=== PATIENT | female | born 1930 | race Caucasian/White ===

== ENCOUNTER → 2016-07-08 | Outpatient (CLI) | payer BC ==
[~2016-07-08] MED LIST: LANS30CA12 PO; SERT-234 PO
[2016-07-08 09:43] LABS: HEMATOCRIT 41.5 % (37-47); MEAN CELL VOLUME 94.1 fL (80-100); MEAN PLATELET VOLUME 10.4 fL (7.4-10.4); PLATELET COUNT 280 K/uL (130-400); RED BLOOD COUNT 4.41 M/uL (4.2-5.4); WHITE BLOOD COUNT 6.03 K/uL (4.8-10.8)
[2016-07-08 09:59] LABS: ALT/SGPT 22 U/L (12-78); BLOOD UREA NITROGEN 23 mg/dl (7-18); BUN/CREATININE RATIO 35.2 (10-20); CALCIUM 8.7 mg/dl (8.5-10.1); CARBON DIOXIDE 26 mmol/L (21-32); CHLORIDE 109 mmol/L (98-107); CHOLESTEROL 222 mg/dl (0-200); CREATININE 0.64 mg/dl (0.60-1.20); GLUCOSE 99 mg/dl (70-99); POTASSIUM 4.3 mmol/L (3.5-5.1); SODIUM 142 mmol/L (136-145); TRIGLYCERIDES 99 mg/dl (0-150); VERY LOW DENSITY LIPOPROT CALC 20 mg/dl
[2016-07-08 10:02] LABS: ALKALINE PHOSPHATASE 59 U/L (45-117); AST/SGOT 14 U/L (15-37); CHOLESTEROL/HDL RATIO 2.9; HDL CHOLESTEROL 77 mg/dl; LDL CHOLESTEROL CALCULATED 125 mg/dl
[2016-07-08 10:03] LABS: BASO % 0.7 %; BASO ABS # 0.04 K/uL (0-0.2); COMPLETE YES; EOS % 5.6 %; IG% 0.2 %; LYMPH % 52.4 %; LYMPH ABS # 3.16 K/uL (1.2-3.4); MONO % 9.5 %; NEUT % 31.6 %
== END | disposition home or self-care (01) ==
LOC: C.LAB 07:50
PROVIDERS: ATTEND Internal Medicine
DX: H81.09 Meniere's disease, unspecified ear (principal)

== ENCOUNTER → 2016-08-18 | Outpatient (CLI) | payer BC ==
--- NOTE | 2016-08-18 14:35 | DIAGNOSTIC IMAGING REPORT ---
RIGHT RIBS UNILATERAL WITH PA CHEST CLINICAL HISTORY: Right lower anterior rib pain. COMPARISON STUDY: Chest radiograph November 20, 2015. FINDINGS: Elevation of the right hemidiaphragm is unchanged. Right breast surgical clips are noted. There is no pneumothorax or pleural effusion. No consolidation is identified. Cardiomediastinal silhouette is stable. There are multiple old right-sided rib fractures. No acute right-sided rib fractures are identified. IMPRESSION: 1. No pneumothorax. No acute right-sided rib fractures identified. 2. Multiple old right-sided rib fractures. Electronically signed by: Sergei Dewey M.D. 08/18/2016 2:34 PM Dictated Date/Time: 08/18/2016 2:31 PM
== END | disposition home or self-care (01) ==
LOC: C.RADBC 14:15
PROVIDERS: ATTEND Physician Assistant
DX: R07.81 Pleurodynia (principal)

== ENCOUNTER → 2017-02-02 | Outpatient (CLI) | payer BC ==
--- NOTE | 2017-02-02 11:52 | DIAGNOSTIC IMAGING REPORT ---
FLUORO UP TO 1 HOUR CLINICAL HISTORY: 86 years-old Female presenting with COUGH, DYSPNEA ON EXERTION. TECHNIQUE: Video fluoroscopic evaluation of of the hemidiaphragms was performed in the AP projection (sniff test). COMPARISON: Chest x-ray from 08/18/2016. FINDINGS: At baseline, the right hemidiaphragm is abnormally elevated at the level of the right eighth rib. The left hemidiaphragm at baseline is at the level of the left 10th rib. Upon inspiration (sniffing maneuver), normal excursion of the left hemidiaphragm observed, which descends to the level of the left 11th rib. However, no significant movement of the right hemidiaphragm is observed. The right hemidiaphragm remains at the level of the right eighth rib. Fluoroscopy dosage (mGy): Not available. Fluoroscopy time: 0.4 minutes. Number of fluoroscopic spot images: 0. IMPRESSION: 1. 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 Normal left hemidiaphragm. Electronically signed by: Sabas Dyson M.D. 02/02/2017 11:51 AM Dictated Date/Time: 02/02/2017 11:47 AM
== END | disposition home or self-care (01) ==
LOC: C.RAD 11:03
PROVIDERS: ATTEND Internal Medicine Pulmonary Disease
DX: R05 Cough (principal)

== ENCOUNTER → 2017-02-11 | Outpatient (CLI) | payer BC ==
[~2017-02-11] MED LIST changes: +OPTIRAY 320 IV PRN
[2017-02-11 11:33] LABS: BLOOD UREA NITROGEN 19 mg/dl (7-18); BUN/CREATININE RATIO 26.4 (10-20); CREATININE 0.71 mg/dl (0.60-1.20)
--- NOTE | 2017-02-11 11:59 | DIAGNOSTIC IMAGING REPORT ---
CT OF THE CHEST WITH IV CONTRAST CLINICAL HISTORY: Cough. Dyspnea on exertion. COMPARISON STUDY: Chest CT September 26, 2005 and chest radiograph November 20, 2015. TECHNIQUE: Following IV administration of 94 mL of Optiray-320, helical axial images of the chest were obtained. Sagittal and coronal reconstructions were viewed as well as maximal intensity projections on an independent 3-D workstation. A dose lowering technique was utilized adhering to the principles of ALARA. CT DOSE: 216.08 mGycm FINDINGS: No enlarged axillary, mediastinal or hilar lymph nodes are present. There are postoperative findings within the right breast. The heart is moderately enlarged. There is no pericardial effusion. Moderate coronary artery calcification is noted. A small hiatal hernia is present. Note is made of moderate elevation of the right hemidiaphragm. Associated linear opacities reflect atelectasis. There is no consolidation to suggest pneumonia. Central airways are patent. There are no suspicious pulmonary nodules. No pneumothorax or pleural effusion is present. There are no suspicious osseous lesions. Mild biliary ductal dilatation is likely related to prior cholecystectomy. This is unchanged since CT of September 26, 2005. There are several hepatic cysts. Note is made of a 1.7 cm hypervascular segment 4A/8 focus within the liver shown on image 39 of 54. IMPRESSION: 1. No acute intrathoracic findings. 2. Moderate elevation of the right hemidiaphragm. 3. Moderate cardiomegaly. 4. 1.7 cm hypervascular segment 4A/8 focus within the liver. This is nonspecific but low suspicion. Electronically signed by: Sergei Dewey M.D. 02/11/2017 11:58 AM Dictated Date/Time: 02/11/2017 11:48 AM
== END | disposition home or self-care (01) ==
LOC: C.CTS 10:36
PROVIDERS: ATTEND Internal Medicine Pulmonary Disease
DX: R06.09 Other forms of dyspnea (principal); R05 Cough

== ENCOUNTER → 2017-03-03 | Outpatient (CLI) | payer BC ==
[~2017-03-03] MED LIST changes: -OPTIRAY 320 IV PRN
--- NOTE | 2017-03-03 13:01 | DIAGNOSTIC IMAGING REPORT ---
MRI OF THE LUMBAR SPINE WITHOUT CONTRAST CLINICAL HISTORY: Left lumbar radiculopathy. COMPARISON STUDY: No previous studies for comparison. TECHNIQUE: Utilizing a 1.5 Denia magnet and dedicated coil, multiplanar, multiecho imaging of the lumbar spine was performed without IV contrast. FINDINGS: For purposes of numbering on this exam, the L5-S1 disc space is assigned to axial image 23 of 25. There is 3 mm of anterolisthesis of L4 and L5. There is no suspicious marrow replacement. Conus terminates at the L1-L2 level. There are few sacral Tarlov cyst. There are bilateral parapelvic cysts within the kidneys and extensive colonic diverticulosis, partially imaged on this exam. No intracanalicular mass or fluid collection is present. L1-2: There is mild disc bulge and facet arthrosis. The central canal and neural foramen are patent. L2-3: There is mild disc bulge and facet arthrosis. The central canal and neural foramen are patent. L3-4: There is mild disc bulge with facet arthrosis and ligamentous hypertrophy. The central canal and neural foramen are patent. L4-5: There is grade I anterolisthesis with slight uncovering of the disc. There is facet arthrosis. Central canal and neural foramen are patent. L5-S1: The central canal and neural foramen are patent. IMPRESSION: 1. Mild multilevel degenerative disc disease and moderate multilevel facet arthrosis. Multilevel disc bulges. No significant central canal or neural foraminal stenosis. 2. No disc herniation identified. 3. No marrow replacement. No compression fracture. Electronically signed by: Sergei Dewey M.D. 03/03/2017 12:59 PM Dictated Date/Time: 03/03/2017 12:54 PM
== END | disposition home or self-care (01) ==
LOC: C.MRIBC 10:33
PROVIDERS: ATTEND Internal Medicine
DX: M54.16 Radiculopathy, lumbar region (principal)

== ENCOUNTER → 2017-07-03 | Outpatient (CLI) | payer BC ==
[2017-07-03 16:47] LABS: BASO % 0.5 %; BASO ABS # 0.03 K/uL (0-0.2); EOS % 3.5 %; EOS ABS # 0.23 K/uL (0-0.5); HEMATOCRIT 41.8 % (37-47); HEMOGLOBIN 14.2 g/dL (12.0-16.0); LYMPH % 45.3 %; LYMPH ABS # 2.97 K/uL (1.2-3.4); MEAN CELL VOLUME 95.7 fL (80-100); MEAN CORPUSCULAR HEMOGLOBIN 32.5 pg (25-34); MEAN PLATELET VOLUME 10.5 fL (7.4-10.4); MONO % 7.6 %; NEUT % 43.1 %; NEUT ABS # 2.83 K/uL (1.4-6.5); PLATELET COUNT 293 K/uL (130-400); RED CELL DISTRIBUTION WIDTH CV 14.1 % (11.5-14.5); RED CELL DISTRIBUTION WIDTH SD 49.5 fL (36.4-46.3); WHITE BLOOD COUNT 6.56 K/uL (4.8-10.8)
[2017-07-03 17:37] LABS: ALBUMIN 3.2 gm/dl (3.4-5.0); ALT/SGPT 19 U/L (12-78); BLOOD UREA NITROGEN 19 mg/dl (7-18); CALCIUM 8.4 mg/dl (8.5-10.1); CARBON DIOXIDE 23 mmol/L (21-32); CHOLESTEROL 208 mg/dl (0-200); CREATININE 0.72 mg/dl (0.60-1.20); GLUCOSE 108 mg/dl (70-99); SODIUM 139 mmol/L (136-145)
[2017-07-03 17:47] LABS: ALKALINE PHOSPHATASE 57 U/L (45-117); AST/SGOT 14 U/L (15-37); LDL CHOLESTEROL CALCULATED 112 mg/dl; TOTAL PROTEIN 6.8 gm/dl (6.4-8.2)
== END | disposition home or self-care (01) ==
LOC: C.LABBC 13:53
PROVIDERS: ATTEND Internal Medicine
DX: M81.0 Age-related osteoporosis without current pathological fracture (principal); K21.9 Gastro-esophageal reflux disease without esophagitis; E78.5 Hyperlipidemia, unspecified; F43.22 Adjustment disorder with anxiety; R06.09 Other forms of dyspnea

== ENCOUNTER 2017-11-15 20:56 | Emergency (ER) | payer BC ==
[~2017-11-15] VITALS: Ht 154.9 cm; Wt 77.5 kg
[2017-11-15 21:01] VITALS: TEMP 36.5
[2017-11-15 21:44] VITALS: O2SAT 94; Ht 154.9 cm; Wt 77.5 kg
[2017-11-15] MEDS ORDERED: ONDANSETRON INJ 2 MG/ML 2 ML VIAL IV STA (21:46)
[2017-11-15] MEDS ORDERED: MECLIZINE HCL 25 MG TAB PO STA (21:46)
[2017-11-15] MEDS ORDERED: SODIUM CHLORIDE 0.9% 1000ML 1,000 ML IV STA (21:46)
[2017-11-15 21:55] LABS: BASO % 0.5 %; BASO ABS # 0.03 K/uL (0-0.2); EOS % 3.2 %; EOS ABS # 0.19 K/uL (0-0.5); HEMATOCRIT 42.7 % (37-47); HEMOGLOBIN 14.4 g/dL (12.0-16.0); IG# 0.01 K/uL (0.00-0.02); LYMPH % 42.4 %; LYMPH ABS # 2.52 K/uL (1.2-3.4); MEAN CELL VOLUME 94.9 fL (80-100); MEAN CORPUSCULAR HGB CONC 33.7 g/dl (32-36); MONO % 10.6 %; MONO ABS # 0.63 K/uL (0.11-0.59); NEUT % 43.1 %; NEUT ABS # 2.56 K/uL (1.4-6.5); PLATELET COUNT 256 K/uL (130-400); RED CELL DISTRIBUTION WIDTH CV 14.7 % (11.5-14.5); WHITE BLOOD COUNT 5.94 K/uL (4.8-10.8)
--- NOTE | 2017-11-15 22:09 | DIAGNOSTIC IMAGING REPORT ---
CT OF THE HEAD WITHOUT CONTRAST CLINICAL HISTORY: Weakness. Dizziness. COMPARISON STUDY: Head CT January 16, 2011. CT DOSE: 537.48 mGy.cm TECHNIQUE: Helical axial images of the head were obtained without IV contrast. Automated exposure control was utilized for the study. A dose lowering technique was utilized adhering to the principles of ALARA. FINDINGS: A 1.5 cm hyperdense extra-axial lesion overlying the left frontal lobe has minimally increased in size since CT of January 07, 2011. No additional intracranial masses are identified. Ventricular system is normal. The basilar cisterns are patent. Mild atrophy is noted. No findings are noted to suggest acute dural sinus thrombosis or acute territorial infarct. There are no significant calvarial abnormalities. Visualized portions of the sinuses and mastoid air cells are clear. IMPRESSION: 1. No acute intracranial findings. 2. Slight increase in size of a 1.5 cm hyperdense extra-axial mass overlying the left frontal lobe since head CT of January 16, 2011. This is consistent with a meningioma. Electronically signed by: Sergei Dewey M.D. 11/15/2017 10:08 PM Dictated Date/Time: 11/15/2017 10:04 PM
[2017-11-15 22:22] LABS: ALBUMIN 3.4 gm/dl (3.4-5.0); ALKALINE PHOSPHATASE 61 U/L (45-117); ALT/SGPT 21 U/L (12-78); AST/SGOT 17 U/L (15-37); BLOOD UREA NITROGEN 19 mg/dl (7-18); CALCIUM 8.4 mg/dl (8.5-10.1); CARBON DIOXIDE 24 mmol/L (21-32); CREATININE 0.89 mg/dl (0.60-1.20); GLUCOSE 85 mg/dl (70-99); POTASSIUM 3.8 mmol/L (3.5-5.1); SODIUM 139 mmol/L (136-145); TOTAL PROTEIN 7.1 gm/dl (6.4-8.2)
[2017-11-15 22:43] VITALS: PULSE 80; O2SAT 95
[2017-11-15 23:00] VITALS: BP 182/89
[2017-11-15] MEDS ORDERED: MECL-91 PO (23:10)
--- NOTE | 2017-11-15 23:19 | EMERGENCY ROOM VISIT NOTE ---
History Report prepared by Becky: Valeri Gardner Under the Supervision of: Dr. Cooper Tamayo D.O. First contact with patient: 21:14 Chief Complaint: DIZZY Stated Complaint: DIZZY History of Present Illness The patient is an 87 year old female who presents to the Emergency Room with complaints of intermittent dizziness for the past 2 weeks. The patient states that she has had these dizzy spells in the past, but they have been getting worse. She states that especially over the past 2 days the episodes have gotten closer together and have been lasting longer. She notes that they are worse when she stands up and moves her head. She notes that this episode started 2.5 hours ago. She notes that she recently started a new medication for depression. The patient denies weakness, numbness, headache, change in vision, ringing in her ears, cough, runny nose, chest pain, nausea, vomiting, abdominal pain, and diarrhea. Source of History: patient Onset: 2 weeks ago Position: head Quality: other (dizziness) Timing: intermittent Modifying Factors (Worsening): movement (of head), other (standing up) Associated Symptoms: No headache, No cough, No chest pain, No nausea, No vomiting, No abdominal pain, No diarrhea, No weakness, No numbness Note: The patient denies change in vision, ringing in her ears, and a runny nose. Review of Systems See HPI for pertinent positives & negatives. A total of 10 systems reviewed and were otherwise negative. Past Medical & Surgical Medical Problems: (1) GERD (gastroesophageal reflux disease) Family History No pertinent family history Social History Alcohol Use: none Drug Use: none Marital Status: Housing Status: lives with family Occupation Status: retired Current/Historical Medications Scheduled Lansoprazole (Prevacid), 30 MG PO DAILY Meclizine HCl (Meclizine 25), 25 MG PO TID Sertraline (Zoloft), 100 MG PO DAILY Allergies Coded Allergies: No Known Allergies (Verified , 10/29/12) Physical Exam Vital Signs Date Time Temp Pulse Resp B/P (MAP) Pulse Ox O2 Delivery O2 Flow Rate FiO2 11/15/17 23:00 182/89 11/15/17 22:43 80 19 188/92 95 Room Air 11/15/17 22:30 80 16 172/80 94 Room Air 11/15/17 22:30 80 172/80 84 187/90 85 184/87 11/15/17 22:29 83 11/15/17 21:44 94 Room Air 11/15/17 21:44 94 Room Air 11/15/17 21:01 36.5 78 18 137/80 93 Room Air Physical Exam GENERAL: Sitting up in bed, alert, well appearing for stated age, well nourished , no distress, non-toxic EYE EXAM: normal conjunctiva. EARS: TMs are clear bilaterally. OROPHARYNX: no exudate, no erythema, lips, buccal mucosa, and tongue normal and mucous membranes are moist NECK: supple, no nuchal rigidity, no adenopathy, non-tender LUNGS: Clear to auscultation. Normal chest wall mechanics HEART: no murmurs, S1 normal and S2 normal ABDOMEN: abdomen soft, non-tender, normo-active bowel sounds, no masses, no rebound or guarding. BACK: Back is symmetrical on inspection and there is no deformity, no midline tenderness, no CVA tenderness. SKIN: no rashes and no bruising UPPER EXTREMITIES: upper extremities are grossly normal. LOWER EXTREMITIES: No pitting edema. NEURO EXAM: Normal sensorium, cranial nerves II-XII intact, normal speech, no weakness of arms, no weakness of legs. No drift. Finger to nose intact. Gross sensation intact. Rapid alternating movements of upper extremities intact. Medical Decision & Procedures ER Provider Diagnostic Interpretation: Radiology results as stated below per my review and the radiologist's interpretation: CT OF THE HEAD WITHOUT CONTRAST CLINICAL HISTORY: Weakness. Dizziness. COMPARISON STUDY: Head CT January 16, 2011. CT DOSE: 537.48 mGy.cm TECHNIQUE: Helical axial images of the head were obtained without IV contrast. Automated exposure control was utilized for the study. A dose lowering technique was utilized adhering to the principles of ALARA. FINDINGS: A 1.5 cm hyperdense extra-axial lesion overlying the left frontal lobe has minimally increased in size since CT of January 07, 2011. No additional intracranial masses are identified. Ventricular system is normal. The basilar cisterns are patent. Mild atrophy is noted. No findings are noted to suggest acute dural sinus thrombosis or acute territorial infarct. There are no significant calvarial abnormalities. Visualized portions of the sinuses and mastoid air cells are clear. IMPRESSION: 1. No acute intracranial findings. 2. Slight increase in size of a 1.5 cm hyperdense extra-axial mass overlying the left frontal lobe since head CT of January 16, 2011. This is consistent with a meningioma. Electronically signed by: Sergei Dewey M.D. 11/15/2017 10:08 PM Dictated Date/Time: 11/15/2017 10:04 PM Laboratory Results 11/15/17 21:44 Red Blood Count 4.50, Mean Corpuscular Volume 94.9, Mean Corpuscular Hemoglobin 32.0, Mean Corpuscular Hemoglobin Concent 33.7, Mean Platelet Volume 10.0, Neutrophils (%) (Auto) 43.1, Lymphocytes (%) (Auto) 42.4, Monocytes (%) (Auto) 10.6, Eosinophils (%) (Auto) 3.2, Basophils (%) (Auto) 0.5, Neutrophils # (Auto ) 2.56, Lymphocytes # (Auto) 2.52, Monocytes # (Auto) 0.63, Eosinophils # (Auto ) 0.19, Basophils # (Auto) 0.03 11/15/17 21:44 Test 11/15/17 21:44 11/15/17 21:55 White Blood Count 5.94 K/uL (4.8-10.8) Red Blood Count 4.50 M/uL (4.2-5.4) Hemoglobin 14.4 g/dL (12.0-16.0) Hematocrit 42.7 % (37-47) Mean Corpuscular Volume 94.9 fL (80-100) Mean Corpuscular Hemoglobin 32.0 pg (25-34) Mean Corpuscular Hemoglobin Concent 33.7 g/dl (32-36) Platelet Count 256 K/uL (130-400) Mean Platelet Volume 10.0 fL (7.4-10.4) Neutrophils (%) (Auto) 43.1 % Lymphocytes (%) (Auto) 42.4 % Monocytes (%) (Auto) 10.6 % Eosinophils (%) (Auto) 3.2 % Basophils (%) (Auto) 0.5 % Neutrophils # (Auto) 2.56 K/uL (1.4-6.5) Lymphocytes # (Auto) 2.52 K/uL (1.2-3.4) Monocytes # (Auto) 0.63 K/uL (0.11-0.59) Eosinophils # (Auto) 0.19 K/uL (0-0.5) Basophils # (Auto) 0.03 K/uL (0-0.2) RDW Standard Deviation 51.0 fL (36.4-46.3) RDW Coefficient of Variation 14.7 % (11.5-14.5) Immature Granulocyte % (Auto) 0.2 % Immature Granulocyte # (Auto) 0.01 K/uL (0.00-0.02) Anion Gap 11.0 mmol/L (3-11) Est Creatinine Clear Calc Drug Dose 43.5 ml/min Estimated GFR () 68.5 Estimated GFR (Non- 59.1 BUN/Creatinine Ratio 21.0 (10-20) Calcium Level 8.4 mg/dl (8.5-10.1) Total Bilirubin 0.3 mg/dl (0.2-1) Direct Bilirubin 0.1 mg/dl (0-0.2) Aspartate Amino Transf (AST/SGOT) 17 U/L (15-37) Alanine Aminotransferase (ALT/SGPT) 21 U/L (12-78) Alkaline Phosphatase 61 U/L (45-117) Troponin I < 0.015 ng/ml (0-0.045) Total Protein 7.1 gm/dl (6.4-8.2) Albumin 3.4 gm/dl (3.4-5.0) Thyroid Stimulating Hormone (TSH) 1.600 uIu/ml (0.300-4.500) Bedside Glucose 81 mg/dl (70-90) Laboratory results per my review. Medications Administered Medications (Trade) Dose Ordered Sig/Terry Route Start Time Stop Time Status Last Admin Dose Admin Ondansetron HCl (Zofran Inj) 4 mg NOW STAT IV 11/15/17 21:46 11/15/17 21:47 DC 11/15/17 22:05 4 MG Sodium Chloride 1,000 ml @ 999 mls/hr Q1H1M STAT IV 11/15/17 21:46 11/15/17 22:46 DC 11/15/17 22:06 999 MLS/HR Meclizine HCl (Antivert Tab) 25 mg NOW STAT PO 11/15/17 21:46 11/15/17 21:47 DC 11/15/17 22:05 25 MG ECG Per My Interpretation Indication: other (dizziness) Rate (beats per minute): 75 Rhythm: sinus rhythm Findings: PAC, Q waves (Inferior, Septal) Comparison ECG Date: 01/24/2002 Change: no significant change ED Course ED COURSE: Vital signs were reviewed and showed situational hypertension. The patients medical record was reviewed The above diagnostic studies were performed and reviewed. ED treatments and interventions as stated above. 2116: The patient was evaluated in room C11B. A complete history and physical examination was performed. 2145: Ordered Meclizine HCl 25 mg PO, NSS 1000 ml @ 999 mls/hr IV, Zofran Inj 4 mg IV. 6: I reevaluated the patient and she is going to try getting up to use the restroom. 2243: Nursing staff called and the patient feels 100% better. She had no difficulty walking. 2311: Upon reevaluation, the patient is resting comfortably. I discussed my findings with the patient and she understands and agrees with the treatment plan. Based on the patients age, coexisting illnesses, exam and lab findings the decision to treat as an outpatient was made. The patient remained stable while under my care. The patient appeared well at the time of discharge. Medical Decision Differential diagnosis includes etiologies such as benign positional vertigo, dehydration, hypovolemia, anemia, tumor, infection, hypoglycemia, electrolyte abnormalities, cardiac sources, intracerebral event, toxicologic, neurologic, as well as others were entertained. Patient is an 87-year-old female who presents the ER for feeling dizzy for the past 2 weeks. She notes specifically over the past 3 days it has been worse. It is mostly with movement of her head and going to standing. Recently started antidepressant. She denies any chest pain or shortness of breath. No weakness or numbness of her arms or legs. CBC along with BMP, LFTs, bilirubin and TSH was unremarkable. Troponin was negative. EKG was unchanged from previous with some sinus arrhythmia. CT head was negative with the exception of a meningioma which was present previously. Patient is neurologically intact. Symptoms resolved with Zofran, fluids and Antivert. Symptoms do not appear to be central. Patient was updated bedside discharge follow-up with PCP as an outpatient. She was able to ambulate without difficulty. Discussed with Pt concerning signs and symptoms to watch out for. Pt was instructed to follow up with their PCP and discussed with the patient their option to return to the ED at anytime for persistent or worsening symptoms. The appropriate anticipatory guidance and out-patient management, including indications for return to the emergency department, were explained at length to the patient and understood. Medication Reconcilliation Current Medication List: was personally reviewed by me Blood Pressure Screening Patient's blood pressure: Elevated blood pressure Blood pressure disposition: Elevated BP felt to be situational Impression Primary Impression: Dizziness Scribe Attestation The scribe's documentation has been prepared under my direction and personally reviewed by me in its entirety. I confirm that the note above accurately reflects all work, treatment, procedures, and medical decision making performed by me. Departure Information Dispostion Home / Self-Care Prescriptions Meclizine HCl (Meclizine 25) 25 Mg Tab 25 MG PO TID for 10 Days Prov: Cooper Tamayo, 11/15/17 Referrals Sabas Osborn M.D. (PCP) Forms HOME CARE DOCUMENTATION FORM, IMPORTANT VISIT INFORMATION Patient Instructions My [facility] Additional Instructions Please follow up with your primary care doctor with in the next 24 hours. Any worsening of your symptoms, please return to the ED immediately. This includes any fevers greater than 100.4, worsening pain, chest pain, shortness breath, persistent nausea, vomiting, unable to eat or drink, or any other concerning signs or symptoms from your standpoint. Please take Antivert as needed for dizziness.
== END 2017-11-15 23:00 | disposition home or self-care (01) ==
LOC: C.EDB 20:58 → C.EDC 23:00
DX: R42 Dizziness and giddiness (principal); K21.9 Gastro-esophageal reflux disease without esophagitis; Z79.899 Other long term (current) drug therapy